=== PATIENT | female | born 1995 | race Two or more races ===

== ENCOUNTER 2016-09-09 17:03 | Inpatient (IN) | payer BC ==
[2016-09-09] MEDS ORDERED: NS 1,000 ML IV ONE (17:18)
[2016-09-09 17:29] LABS: % IMMATURE GRANULYOCYTES 0.3 % (0.0-1.1); ABSOLUTE IMMATURE GRANULOCYTES 0.07 10^3/uL (0.00-0.10); ADD DIFF? NO; ADD MORPH? NO; ADD SCAN? NO; ATYPICAL LYMPHOCYTE FLAG 0 (0-99); FRAGMENT RBC FLAG 0 (0-99); HEMATOCRIT 43.6 % (38.0-47.0); HEMOGLOBIN 15.5 g/dL (12.6-16.3); LEFT SHIFT FLG 0 (0-99); LIPEMIA HEMOLYSIS FLAG 90 (0-99); MEAN CELL HEMOGLOBIN 30.9 pg (27.9-34.1); MEAN CELL HEMOGLOBIN CONCENTR. 35.6 g/dL (32.4-36.7); MEAN CELL VOLUME 86.9 fL (81.5-99.8); MEAN PLATELET VOLUME 9.4 fL (8.7-11.7); PLATELET CLUMPS FLAG 0 (0-99); PLATELET COUNT 361 10^3/uL (150-400); RED BLOOD CELL COUNT 5.02 10^6/uL (4.18-5.33); RED CELL DISTRIBUTION WIDTH 13.6 % (11.5-15.2)
--- NOTE | 2016-09-09 17:36 | EDPHY ---
H & P Stated Complaint: mid abd pain, n/v x30 min - Personal History LMP (Females 10-55): 8-14 Days Ago Current Tetanus/Diphtheria Vaccine: Yes Current Tetanus Diphtheria and Acellular Pertussis (TDAP): Yes - Medical/Surgical History Hx Asthma: No Hx Chronic Respiratory Disease: No Hx Diabetes: No Hx Cardiac Disease: No Hx Renal Disease: No Hx Cirrhosis: No Hx Alcoholism: No Hx HIV/AIDS: No Hx Splenectomy or Spleen Trauma: No Other PMH: ANXIETY/DEPRESSION/LYME DISEASE. PSHx: lymph node removal L chest wall, chronic fatigue, epistein allred, chronic infection, marijuana. - Social History Smoking Status: Never smoked HPI/ROS: Chief complaint: Abdominal pain History of present illness: This is a 21-year-old female who presents to the emergency department for evaluation of abdominal pain. Patient reports onset of symptoms approximately 30 minutes ago. She describes diffuse pain, worse in the right lower abdomen. She has had associated nausea and vomiting x3 and one episode of diarrhea. No report of blood in either at the vomit or diarrhea. No reported fevers or urinary symptoms. Review of systems: A 10 point review of systems was obtained and other than described above was negative (Joni Pitts) - Physical Exam Exam: General Appearance: Alert, uncomfortable appearing. Eyes: Pupils equal and round no pallor or injection. ENT, Mouth: Mucous membranes moist. Respiratory: There are no retractions, lungs are clear to auscultation. Cardiovascular: Regular rate and rhythm. Gastrointestinal: Bowel sounds normal. Abdomen is soft. She is diffusely tender to palpation with point of maximal intensity in the right lower quadrant including over McBurney's. Neurological: Alert and oriented. Strength and sensation intact and symmetrical. Skin: Warm and dry, no rashes. Musculoskeletal: Neck is supple nontender. Extremities are symmetrical, full range of motion. Psychiatric: Patient is oriented X 3, there is no agitation. (Joni Pitts) Constitutional: Initial Vital Signs Temperature (C) 37 C 09/09/16 17:05 Heart Rate 100 09/09/16 17:05 Respiratory Rate 20 09/09/16 17:05 Blood Pressure 126/90 H 09/09/16 17:05 O2 Sat (%) 100 09/09/16 17:05 O2 Delivery Mode Room Air Allergies/Adverse Reactions: azithromycin [From Zithromax] Allergy (Severe, Verified 10/22/16 13:46) Hives Home Medications: Medication Instructions Recorded ALPRAZolam [Xanax 0.5 MG (*)] 0.5 mg PO DAILY PRN 09/09/16 Albuterol [Proventil Inhaler HFA 1 - 2 puffs IH Q4H PRN 09/09/16 (*)] Beclomethasone Qvar 80 [Qvar 80 2 puffs IH DAILY PRN 09/09/16 (*)] Budesonide [Rhinocort Allergy] 2 spray EACHNARE DAILY 09/09/16 Cholecalciferol Vit D3 [Vitamin D3 4,000 units PO DAILY 09/09/16 2000 units tab (OTC)] Citalopram [CeleXA] 40 mg PO HS 09/09/16 Cyanocobalamin [Vitamin B12 (*)] 2,000 mcg PO DAILY 09/09/16 Herbals/Supplements -Info Only 1 ea PO DAILY 09/09/16 Lisdexamfetamine Dimesylate 40 mg PO DAILY PRN 09/09/16 [Vyvanse] Montelukast Sodium [Singulair 10 10 mg PO HS 09/09/16 mg (*)] Nortriptyline HCl 40 mg PO HS 09/09/16 traZODone [traZODONE 50MG (*)] 50 mg PO HS 09/09/16 valACYclovir [Valtrex (*)] 500 mg PO BID PRN 09/09/16 Medical Decision Making - Diagnostics Imaging: Pelvic ultrasound unremarkable Right lower quadrant ultrasound nondiagnostic for appendicitis CT scan of the abdomen pelvis with IV contrast most consistent with a gastroenteritis, nondiagnostic for appendicitis (Joni Pitts) ED Course/Re-evaluation: The patient was evaluated and managed by the physician's assistant customer service manager. My cosignature indicates that I reviewed the chart and I agree with the findings and plan of care as documented. I am the secondary supervising physician. ( Vonda Manning) Patient is discussed with my secondary supervising physician Dr. Vonda Manning. Patient presents to the emergency department with abdominal pain with vomiting and diarrhea. She does have abdominal tenderness including at McBurney 's point. She has a significant leukocytosis of 20,000. Her ultrasound and CT scan of the abdomen and pelvis are nondiagnostic for appendicitis. Given McBurney point tenderness surgery is consulted. They believe unlikely appendicitis but do recommend observing her overnight. She is admitted to the medicine team. The plan has been discussed with the patient who voiced understanding and agreement with it. (Joni Pitts) Differential Diagnosis: Included but not limited to gastritis, gastroenteritis, biliary tract disease, pancreatitis, colitis, appendicitis, urinary tract disease, and associated complications (Joni Pitts) - Data Points Laboratory Results: Laboratory Results 09/09/16 17:20 09/09/16 17:20 09/09/16 09/09/16 09/09/16 20:43 17:20 17:20 WBC RBC Hgb Hct MCV MCH MCHC RDW Plt Count MPV Neut % (Auto) Lymph % (Auto) Rogers % (Auto) Eos % (Auto) Baso % (Auto) Nucleat RBC Rel Count Absolute Neuts (auto) Absolute Lymphs (auto) Absolute Monos (auto) Absolute Eos (auto) Absolute Basos (auto) Absolute Nucleated RBC Immature Gran % Immature Gran # Sodium 137 mEq/L mEq/L (134-144) Potassium 3.8 mEq/L mEq/L (3.5-5.2) Chloride 104 mEq/L mEq/L (97-110) Carbon Dioxide 19 mEq/l L mEq/l (22-31) Anion Gap 14 mEq/L mEq/L (8-16) BUN 8 mg/dL mg/dL (7-23) Creatinine 0.7 mg/dL mg/dL (0.6-1.0) Estimated GFR > 60 Glucose 84 mg/dL mg/dL (70-100) Calcium 10.2 mg/dL mg/dL (8.5-10.4) Total Bilirubin 0.8 mg/dL mg/dL (0.1-1.4) Conjugated Bilirubin 0.6 mg/dL H mg/dL (0.0-0.5) Unconjugated Bilirubin 0.2 mg/dL mg/dL (0.0-1.1) AST 40 IU/L IU/L (14-46) ALT 45 IU/L IU/L (9-52) Alkaline Phosphatase 87 IU/L IU/L (38-126) Total Protein 8.6 g/dL H g/dL (6.3-8.2) Albumin 5.0 g/dL g/dL (3.5-5.0) Lipase 153.0 IU/L IU/L (23-300) Beta HCG, Qual NEGATIVE Urine Color PALE YELLOW Urine Appearance CLEAR Urine pH 6.0 (5.0-7.5) Ur Specific [place] > 1.035 H (1.002-1.030) Urine Protein NEGATIVE (NEGATIVE) Urine Ketones 1+ H (NEGATIVE) Urine Blood NEGATIVE (NEGATIVE) Urine Nitrate NEGATIVE (NEGATIVE) Urine Bilirubin NEGATIVE (NEGATIVE) Urine Urobilinogen NEGATIVE EU EU (0.2-1.0) Ur Leukocyte Esterase NEGATIVE (NEGATIVE) Ur Culture Indicated? NOT INDICATED (NI) Urine Glucose NEGATIVE (NEGATIVE) 09/09/16 17:20 WBC 20.17 10^3/uL H 10^3/uL (3.80-9.50) RBC 5.02 10^6/uL 10^6/uL (4.18-5.33) Hgb 15.5 g/dL g/dL (12.6-16.3) Hct 43.6 % % (38.0-47.0) MCV 86.9 fL fL (81.5-99.8) MCH 30.9 pg pg (27.9-34.1) MCHC 35.6 g/dL g/dL (32.4-36.7) RDW 13.6 % % (11.5-15.2) Plt Count 361 10^3/uL 10^3/uL (150-400) MPV 9.4 fL fL (8.7-11.7) Neut % (Auto) 78.0 % H % (39.3-74.2) Lymph % (Auto) 15.6 % % (15.0-45.0) Rogers % (Auto) 4.8 % % (4.5-13.0) Eos % (Auto) 1.0 % % (0.6-7.6) Baso % (Auto) 0.3 % % (0.3-1.7) Nucleat RBC Rel Count 0.0 % % (0.0-0.2) Absolute Neuts (auto) 15.72 10^3/uL H 10^3/uL (1.70-6.50) Absolute Lymphs (auto) 3.14 10^3/uL H 10^3/uL (1.00-3.00) Absolute Monos (auto) 0.97 10^3/uL H 10^3/uL (0.30-0.80) Absolute Eos (auto) 0.21 10^3/uL 10^3/uL (0.03-0.40) Absolute Basos (auto) 0.06 10^3/uL 10^3/uL (0.02-0.10) Absolute Nucleated RBC 0.00 10^3/uL 10^3/uL (0-0.01) Immature Gran % 0.3 % % (0.0-1.1) Immature Gran # 0.07 10^3/uL 10^3/uL (0.00-0.10) Sodium Potassium Chloride Carbon Dioxide Anion Gap BUN Creatinine Estimated GFR Glucose Calcium Total Bilirubin Conjugated Bilirubin Unconjugated Bilirubin AST ALT Alkaline Phosphatase Total Protein Albumin Lipase Beta HCG, Qual Urine Color Urine Appearance Urine pH Ur Specific [place] Urine Protein Urine Ketones Urine Blood Urine Nitrate Urine Bilirubin Urine Urobilinogen Ur Leukocyte Esterase Ur Culture Indicated? Urine Glucose Medications Given: Discontinued Medications Hydromorphone HCl (Dilaudid) 0.5 mg IVP EDNOW ONE Stop: 09/09/16 18:18 Last Admin: 09/09/16 18:32 Dose: 0.5 mg Hydromorphone HCl (Dilaudid) 0.5 mg IVP EDNOW ONE Stop: 09/09/16 19:40 Last Admin: 09/09/16 19:52 Dose: 0.5 mg Sodium Chloride (Ns) 1,000 mls @ 0 mls/hr IV ONCE ONE PRN Reason: Wide Open Stop: 09/09/16 17:19 Last Admin: 09/09/16 17:32 Dose: 1,000 mls Ondansetron HCl (Zofran) 4 mg IVP EDNOW ONE Stop: 09/09/16 18:18 Last Admin: 09/09/16 18:32 Dose: 4 mg Departure - Departure Disposition: [facility] Acute Clinical Impression: Abdominal pain Qualifiers: Abdominal location: generalized Qualified Code(s): R10.84 - Generalized abdominal pain Condition: Good
[2016-09-09 17:48] LABS: ALANINE AMINOTRANSFERASE 45 IU/L (9-52); ALKALINE PHOSPHATASE 87 IU/L (38-126); ANION GAP 14 mEq/L (8-16); ASPARTATE AMINOTRANSFERASE 40 IU/L (14-46); BILIRUBIN,TOTAL 0.8 mg/dL (0.1-1.4); BILIRUBIN-CONJUGATED 0.6 mg/dL (0.0-0.5); BILIRUBIN-UNCONJUGATED 0.2 mg/dL (0.0-1.1); CALCIUM 10.2 mg/dL (8.5-10.4); CARBON DIOXIDE 19 mEq/l (22-31); CHLORIDE 104 mEq/L (97-110); CREATININE 0.7 mg/dL (0.6-1.0); GLOMERULAR FILTRATION RATE > 60; GLUCOSE 84 mg/dL (70-100); POTASSIUM 3.8 mEq/L (3.5-5.2); SODIUM 137 mEq/L (134-144); TOTAL PROTEIN 8.6 g/dL (6.3-8.2)
[2016-09-09] MEDS ORDERED: ONDANSETRON 4 MG/2 ML VIAL IVP ONE (18:17)
[2016-09-09] MEDS ORDERED: HYDROmorphONE/DILAUDID 1 MG/ML SYR IVP ONE ×2 (18:17→19:39)
[2016-09-09] MEDS ORDERED: IOPAMIDOL (ISOVUE-300) 100 ML BTL IV ONE (19:04)
[2016-09-09 19:59] VITALS: RESP 16
[2016-09-09 21:12] LABS: COLOR PALE YELLOW; LEUKOCYTE ESTERASE,URINE NEGATIVE (NEGATIVE); NITRITE,URINE NEGATIVE (NEGATIVE)
--- NOTE | 2016-09-09 21:20 | GCON ---
[f rep st] CONSULTATION GENERAL SURGERY CONSULTATION DATE OF CONSULTATION: 09/09/2016 REFERRING PHYSICIAN: SKYLAR Smith CHIEF COMPLAINT: Abdominal pain. HISTORY OF PRESENT ILLNESS: The patient is a 21-year-old woman who developed severe nausea and vomi ting. She was diaphoretic during her episodes. She developed the onset of abdominal pain, acute on set, that is worse in her low pelvis on the right side. She had this feeling before when she had a ruptured cyst. She presented to the ER. Her pelvic ultrasound was obtained that did not show any a bnormality. She had an ultrasound of her abdomen which did not visualize the appendix. She then chadwick d a CT of her abdomen which did not show the appendix, but there was also no evidence of secondary s igns of appendicitis. She did have fluid-filled loops of distal small bowel and constipation at the level of the cecum. Her white count is 20,000. PAST MEDICAL HISTORY: Anxiety, depression, Lyme disease. PAST SURGICAL HISTORY: Lymph node removal. SOCIAL HISTORY: She does not use tobacco. 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 ALLERGIES: Azithromycin. MEDICATIONS: Celexa, control, trazodone, budesonide, Cipro, Singulair. FAMILY HISTORY: No family history of bowel disease. PHYSICAL EXAMINATION: VITAL SIGNS: 37, 100, 126/90, 20, 100%. GENERAL: A pleasant, well-nourishe d, well-groomed woman in mild distress on [facility]. HEENT: Normocephalic. No gross hearing deficits . Mucous membranes moist. Pupils equal and round. No scleral icterus. LUNGS: Clear to auscultat ion bilaterally. No increased work of breathing. CARDIAC: Regular rate. ABDOMEN: Bowel sounds p resent. She is tender above the suprapubic area on the right side and in the right lower quadrant. SKIN: Warm and dry. MUSCULOSKELETAL: Normal nails. IMAGING: Results reviewed per HPI. IMPRESSION AND PLAN: The patient is a 21-year-old with the acute onset abdominal pain. Her CT scan does not show appendicitis. However, due to her tachycardia and her elevated white count requiring narcotic pain medication, I do recommend that she be hydrated and admitted overnight with labs rech ecked in the morning. I am hopeful she will not need surgery. /[id number]/MODL
[2016-09-09] MEDS ORDERED: ACETAMINOPHEN 325 MG TAB PO PRN (21:33)
[2016-09-09] MEDS ORDERED: ALBUTEROL 60 PUFFS/8 GM MDI IH PRN (21:34)
[2016-09-09] MEDS ORDERED: BECLOMETHASONE QVAR 80 MDI IH PRN (21:34)
[2016-09-09] MEDS ORDERED: NON-FORMULARY NEW DRUG (Lisdexamfetamine Dimesylate [Vyvanse] 40 MG) PO PRN (21:34)
[2016-09-09] MEDS ORDERED: ALPRAZolam 0.5 MG TAB PO PRN (21:34)
--- NOTE | 2016-09-09 21:55 | GHP ---
[f rep st] HISTORY AND PHYSICAL DATE OF ADMISSION: 09/09/2016 CHIEF COMPLAINT: Abdominal pain. HISTORY OF PRESENT ILLNESS: This is a 21-year-old female who presents with acute onset of abdominal pain. It began in her epigastrium, migrated down to her right lower quadrant. It was associated w ith nonbloody, nonbilious emesis x3 and a small episode of diarrhea. She had an ovarian cyst ruptur e but has had no other events of abdominal pain. She has never had any abdominal surgeries. Dilaud id she received in the emergency department has partially relieved her pain. PAST MEDICAL/PAST SURGICAL HISTORY: 1. Lyme disease. 2. Chronic mono. 3. Chronic fatigue syndrome. 4. B12 deficiency. MEDICATIONS: Please see medication reconciliation. ALLERGIES: Azithromycin. FAMILY HISTORY: Her grandmother had diabetes. SOCIAL HISTORY: She is a [employer] student. She occasionally drinks alcohol. She does not smoke. REVIEW OF SYSTEMS: Negative for fevers; however, otherwise a 10-point review of systems is negative except per HPI. PHYSICAL EXAMINATION: VITAL SIGNS: Blood pressure 121/80, heart rate 96, respiration rate 16, satu rating 95% on room air. Temperature is 37. GENERAL: The patient is a pleasant female who appears mildly uncomfortable, lying in bed in no acute distress. HEENT: Normocephalic, atraumatic. CARDIO VASCULAR: Regular rate and rhythm. No murmurs, rubs, or gallops. PULMONARY: Lungs clear to auscu ltation bilaterally. ABDOMEN: Normal bowel sounds. ABDOMEN: Soft. She is tender to palpation in the right lower quadrant. There are no rebound or guarding signs. This is not peritoneal. SKIN: No rash. : No Ruiz. NEUROLOGIC: Alert and oriented x3. She is moving all extremities. PSYC HIATRIC: Normal mood and affect. LABS: CBC shows a white count of 20,000. Basic metabolic panel shows a bicarb of 19 otherwise her conjugated bilirubin is mildly elevated at 0.6. Urinalysis shows ketones concentrated. There is no blood. DATA: 1. I discussed this with Joni Pitts. Will admit to [facility] for observation. 2. CT scan shows is nondiagnostic for appendicitis but it looks most likely like gastroenteritis. 3. Pelvic renal ultrasound is normal. 4. Abdominal ultrasound is nondiagnostic for appendicitis. IMPRESSION AND PLAN: A 21-year-old female presents with abdominal pain. 1. Abdominal pain: Most likely due to gastroenteritis. Her imaging was nondiagnostic to rule out appendicitis. She was seen by Dr. Magaña in the emergency department who feels that it is unlikely a ppendicitis. Given her white count of 20,000, will monitor her overnight. I provided her with Dila udid for pain relief, Zofran. Will recheck her labs in the morning. 2. Mild acidosis: I will hydrate her and recheck in the morning. 3. Will continue her outpatient medications for attention deficit hyperactivity disorder, anxiety, and allergies. DISPOSITION: If her abdominal pain is improved and her white count has dropped, she will be able to be discharged tomorrow. If she worsens, would alert General Surgery. /[id number]/MODL
[2016-09-09] MEDS ORDERED: (Lisdexamfetamine Dimesylate [Vyvanse] 40 MG) PO PRN (21:56)
[2016-09-09] MEDS: NS 1,000 ML IV SCH (22:02)
[2016-09-09] MEDS: HYDROmorphONE/DILAUDID 1 MG/ML SYR IVP PRN (22:15)
[2016-09-09] MEDS: ONDANSETRON DISINTEGRATING 4 MG TAB PO PRN (22:28)
[2016-09-09] MEDS: valACYclovir 500 MG TAB PO PRN (22:29)
[2016-09-09] MEDS: traZODone 50 MG TAB PO SCH (22:29)
[2016-09-09] MEDS: NORTRIPTYLINE HCL 10 MG CAP PO SCH (22:30)
[2016-09-09] MEDS: ALPRAZolam 0.25 MG TAB PO PRN ×2 (22:33→22:34)
[2016-09-09] MEDS: MONTELUKAST SODIUM 10 MG TAB PO SCH (22:33)
[2016-09-09] MEDS: CITALOPRAM 20 MG TAB PO SCH (22:34)
[2016-09-10] MEDS: HYDROmorphONE/DILAUDID 1 MG/ML SYR IVP PRN ×5 (02:11→19:02)
[2016-09-10 05:41] LABS: % IMMATURE GRANULYOCYTES 0.5 % (0.0-1.1); ABSOLUTE IMMATURE GRANULOCYTES 0.06 10^3/uL (0.00-0.10); ADD DIFF? NO; ADD MORPH? NO; ADD SCAN? NO; ATYPICAL LYMPHOCYTE FLAG 10 (0-99); FRAGMENT RBC FLAG 0 (0-99); HEMATOCRIT 37.8 % (38.0-47.0); HEMOGLOBIN 12.8 g/dL (12.6-16.3); LEFT SHIFT FLG 0 (0-99); LIPEMIA HEMOLYSIS FLAG 90 (0-99); MEAN CELL HEMOGLOBIN 30.5 pg (27.9-34.1); MEAN CELL HEMOGLOBIN CONCENTR. 33.9 g/dL (32.4-36.7); MEAN PLATELET VOLUME 9.7 fL (8.7-11.7); PLATELET CLUMPS FLAG 30 (0-99); PLATELET COUNT 276 10^3/uL (150-400); RED CELL DISTRIBUTION WIDTH 13.8 % (11.5-15.2)
[2016-09-10 05:54] LABS: CARBON DIOXIDE 21 mEq/l (22-31); CHLORIDE 109 mEq/L (97-110); POTASSIUM 4.2 mEq/L (3.5-5.2); SODIUM 136 mEq/L (134-144)
[2016-09-10 05:55] LABS: ANION GAP 6 mEq/L (8-16); CALCIUM 8.6 mg/dL (8.5-10.4); CREATININE 0.7 mg/dL (0.6-1.0); GLOMERULAR FILTRATION RATE > 60; GLUCOSE 76 mg/dL (70-100)
[2016-09-10] MEDS: valACYclovir 500 MG TAB PO PRN (07:23)
[2016-09-10] MEDS: ALPRAZolam 0.25 MG TAB PO PRN (07:24)
--- NOTE | 2016-09-10 08:23 | SOAPPROG ---
SOAP Progress Note Assessment/Plan: Assessment: HD # 2 for rlq abdominal pain CT did not show appendicitis. Picture more consistent with gastroenteritis and stool at cecum Remains tender RLQ but less so than last night in ER Pain meds X 1 WBC better Will advance diet and see. Can consider CT with po contrast if picture remains unclear S: Vivid dreams. Pain with moving. No diarrhea. No emesis Plan: 09/10/16 08:20 Objective: Vital Signs Temp Pulse Resp BP Pulse Ox 36.7 C 85 16 85/56 L 96 09/10/16 07:16 09/10/16 07:16 09/10/16 07:16 09/10/16 07:16 09/10/16 07:16 Laboratory Results 09/10/16 05:07 09/10/16 05:07 09/09/16 09/10/16 09/11/16 05:59 05:59 05:59 Intake Total 1700 Output Total 600 Balance 1100 Physical Exam - Physical Exam General Appearance: WD/WN, alert, no apparent distress EENT: PERRL/EOMI, normal ENT inspection Respiratory: lungs clear, normal breath sounds Cardiac/Chest: regular rate, rhythm Abdomen: normal bowel sounds, soft, other (tender one spot RLQ) Skin: normal color, warm/dry Extremities: normal range of motion ICD10 Worksheet Patient Problems: Problems Problem Status Onset Abdominal pain Acute
[2016-09-10] MEDS: CYANO/VITAMIN B12 1000 MCG TAB PO SCH (08:30)
[2016-09-10] MEDS ORDERED: [UNRECOGNIZED DRUG - REMARK] EACHNARE SCH (09:00)
[2016-09-10] MEDS: ONDANSETRON DISINTEGRATING 4 MG TAB PO PRN (09:21)
[2016-09-10] MEDS: FLUTICASONE NASAL 120 SPRAYS/16 GM MDI EACHNARE SCH (11:02)
[2016-09-10] MEDS ORDERED: ONDANSETRON 4 MG/2 ML VIAL IVP PRN (11:34)
[2016-09-10] MEDS ORDERED: BISACODYL 10 MG SUPP PR PRN (11:35)
[2016-09-10] MEDS ORDERED: BISACODYL 10 MG SUPP PR ONE (11:35)
[2016-09-10] MEDS ORDERED: METOCLOPRAMIDE 10 MG/2 ML VIAL IVP PRN (15:39)
[2016-09-10] MEDS ORDERED: METOCLOPRAMIDE 5 MG TAB PO PRN (15:40)
[2016-09-10] MEDS: oxyCODONE IR 5 MG TAB PO PRN ×2 (20:13→23:23)
--- NOTE | 2016-09-10 20:32 | HOSPPROG ---
Hospitalist Progress Note Assessment/Plan: Assessment: 21 yo F p/w acute gastroenteritis c/b SIRS, hypotension Plan: # Gastroenteritis. Acute, visualized on abd CT w/ concomitant cecal constipation - unresolved, pain, nausea, dietary intolerance continue - unable to tolerate light diet, reduce to clears - cont PRN dilaudid, zofran for nausea, reglan 2nd line # SIRS. Acute, tachycardia + leukocytosis, suspect 2/2 above, although appreciate Dr. Magaña's consultation for possible appendicitis - appendix insufficiently visualized on CT/US, cont to monitor pain and clinical course, as this would be a catastrophic complication if it evolved while obscured on imaging - cont IVF at 150cc/hr given that she has no PO tolerance at this time - hold on abx - monitor CBC # Hypotension. Acute, 2/2 poor PO evelin and hypovolemia, cont IVF # Metabolic Acidosis. Acute, 2/2 vomiting/hypovolemia, cont IVF and monitor BMP # Constipation. Counseled patient on use of suppository and enema, as this could improve symptoms Diet. Red to clears Ppx. Mod risk, SCDs Code. Full Dispo. ADD uncertain, upgrade to inpatient admission status now given oral intolerance and hypotension today, unsafe to medically discharge, requiring ongoing IVF/IV pain/nausea Rx Subjective: patient requiring counseling about her dx, coordinating w/ RN to tx nausea Objective: Vital Signs Temp Pulse Resp BP Pulse Ox 36.7 C 90 16 120/81 H 97 09/10/16 07:16 09/10/16 14:13 09/10/16 14:13 09/10/16 14:13 09/10/16 14:13 Laboratory Results 09/10/16 05:07 09/10/16 05:07 09/09/16 09/10/16 09/11/16 05:59 05:59 05:59 Intake Total 1700 1047 Output Total 600 110 Balance 1100 937 - Time Spent With Patient Time Spent with Patient: greater than 35 minutes Time Spent with Patient: Greater than 35 minutes spent on this patients care, greater than 50% of time spent counseling, educating, and coordinating care regarding the above mentioned plan. - Physical Exam Constitutional: uncomfortable, No no apparent distress (mild), No not in pain Ears, Nose, Mouth, Throat: moist mucous membranes, hearing normal, ears appear normal, no oral mucosal ulcers Cardiovascular: tachycardia, No systolic murmur, No irregularly irregular, No edema Respiratory: no respiratory distress, no rales or rhonchi, clear to auscultation Gastrointestinal: normoactive bowel sounds, tenderness (RLQ and R mid abd), guarding (voluntary), No distension Genitourinary: no bladder fullness, no bladder tenderness, No huang in urethra Neurologic: AAOx3 Psychiatric: interacting appropriately, not encephalopathic ICD10 Worksheet Patient Problems: Problems Problem Status Onset Abdominal pain Acute
[2016-09-10] MEDS ORDERED: LACTULOSE 20 GM/30 ML UDCUP PO PRN (20:34)
[2016-09-10] MEDS ORDERED: MAGNESIUM HYDROXIDE 30 ML UDCUP PO PRN (20:34)
[2016-09-10] MEDS ORDERED: POLYETHYLENE GLYCOL 3350 17 GM PKT PO PRN (20:34)
[2016-09-10] MEDS: MONTELUKAST SODIUM 10 MG TAB PO SCH (23:23)
[2016-09-10] MEDS: CITALOPRAM 20 MG TAB PO SCH (23:23)
[2016-09-10] MEDS: NORTRIPTYLINE HCL 10 MG CAP PO SCH (23:24)
[2016-09-10] MEDS: traZODone 50 MG TAB PO SCH (23:24)
[2016-09-10] MEDS: SENNOSIDES/DOCUSATE SODIUM TAB PO SCH (23:24)
[2016-09-10] MEDS: NS 1,000 ML IV SCH (23:25)
[2016-09-11] MEDS: oxyCODONE IR 5 MG TAB PO PRN ×2 (05:45→12:54)
[2016-09-11] MEDS: ONDANSETRON DISINTEGRATING 4 MG TAB PO PRN ×2 (05:46→12:54)
[2016-09-11 06:14] LABS: % IMMATURE GRANULYOCYTES 0.3 % (0.0-1.1); ABSOLUTE IMMATURE GRANULOCYTES 0.02 10^3/uL (0.00-0.10); ADD DIFF? NO; ADD MORPH? NO; ADD SCAN? NO; ATYPICAL LYMPHOCYTE FLAG 10 (0-99); FRAGMENT RBC FLAG 0 (0-99); HEMATOCRIT 34.1 % (38.0-47.0); HEMOGLOBIN 11.5 g/dL (12.6-16.3); LEFT SHIFT FLG 0 (0-99); LIPEMIA HEMOLYSIS FLAG 80 (0-99); MEAN CELL HEMOGLOBIN 30.8 pg (27.9-34.1); MEAN CELL HEMOGLOBIN CONCENTR. 33.7 g/dL (32.4-36.7); MEAN CELL VOLUME 91.4 fL (81.5-99.8); MEAN PLATELET VOLUME 9.7 fL (8.7-11.7); PLATELET CLUMPS FLAG 0 (0-99); PLATELET COUNT 248 10^3/uL (150-400); RED BLOOD CELL COUNT 3.73 10^6/uL (4.18-5.33); RED CELL DISTRIBUTION WIDTH 13.6 % (11.5-15.2)
[2016-09-11 06:21] LABS: ANION GAP 6 mEq/L (8-16); CALCIUM 7.9 mg/dL (8.5-10.4); CARBON DIOXIDE 20 mEq/l (22-31); CHLORIDE 113 mEq/L (97-110); CREATININE 0.6 mg/dL (0.6-1.0); GLOMERULAR FILTRATION RATE > 60; GLUCOSE 76 mg/dL (70-100); SODIUM 139 mEq/L (134-144)
--- NOTE | 2016-09-11 11:04 | SOAPPROG ---
SOAP Progress Note Assessment/Plan: Assessment: HD #3 for rlq abdominal pain Complains of persistent pain overnight, no improvement, tender on exam Repeat CT with PO contrast ? viral gastroenteritis Labs WNL If CT negative, can advance diet and d/c home later today appreciate hospitalist comanagement S: Vomiting yesterday. complains of persistent pain without improvement. minimal flatus and no BM O: laying in bed, comfortable, NAD No increased WOB Hypoactive BS, soft, tender RLQ, nondistended. Piercings in RLQ and LLQ 09/11/16 13:41 09/11/16 13:41 Objective: Vital Signs Temp Pulse Resp BP Pulse Ox 36.8 C 82 16 97/68 L 95 09/11/16 07:25 09/11/16 07:25 09/11/16 07:25 09/11/16 07:25 09/11/16 07:25 Laboratory Results 09/11/16 05:50 09/11/16 05:50 09/10/16 09/11/16 09/12/16 05:59 05:59 05:59 Intake Total 1999 Balance 1999 ICD10 Worksheet Patient Problems: Problems Problem Status Onset Abdominal pain Acute
[2016-09-11] MEDS ORDERED: IOPAMIDOL (ISOVUE-300) 100 ML BTL IV ONE (11:19)
[2016-09-11] MEDS: CYANO/VITAMIN B12 1000 MCG TAB PO SCH (12:54)
[2016-09-11] MEDS: ALPRAZolam 0.25 MG TAB PO PRN (12:54)
[2016-09-11] MEDS: SENNOSIDES/DOCUSATE SODIUM TAB PO SCH (12:54)
[2016-09-11] MEDS: FLUTICASONE NASAL 120 SPRAYS/16 GM MDI EACHNARE SCH (12:55)
--- NOTE | 2016-09-11 14:19 | PDDCSUM ---
Discharge Summary Discharge Summary: DISCHARGE SUMMARY FOLLOW-UP ITEMS: None DATE OF ADMISSION: 09/09/16 DATE OF DISCHARGE: 09/11/2016 DISCHARGE DIAGNOSES: 1. Acute gastroenteritis 2. Systemic inflammatory response syndrome 3. Acute hypotension 4. Acute metabolic acidosis 5. Constipation CONSULTATIONS: General surgery by Dr. Magaña PROCEDURES / IMAGING: CT of the abdomen initially demonstrating cecal constipation and fluid-filled loops of small bowel, transvaginal ultrasound demonstrating no abnormalities, repeat CT of the abdomen demonstrates complete resolution of cecal constipation and resolution of gastroenteritis CHIEF COMPLAINT: Acute abdominal pain SUBJECTIVE: Patient is feeling well at time of discharge, she has been able to tolerate oral solids and liquids PHYSICAL EXAM ON DISCHARGE: Systolic blood pressure is 100, heart rate 80, afebrile overnight, satting well on room air, abdomen is soft nontender with the exception of mild tenderness to moderate palpation in the right lower quadrant with normal bowel sounds, no guarding LABS ON DISCHARGE: Creatinine 0.6, white blood cell count 7400, hemoglobin 11.5 HOSPITAL COURSE BY PROBLEM: 1. Acute gastroenteritis. Abdominal CT demonstrating fluid-filled loops of bowel consistent with this diagnosis well as a systemic inflammatory response. Patient's acute process resulted in constipation the cecum. Initially, the patient's appendix was unable to be visualized secondary to the above, and General surgery decided to pursue conservative management and continue to monitor. After patient's symptoms began improving, the patient did continue to have tenderness to palpation in the right lower quadrant so a repeat abdominal CT was performed. Repeat CT demonstrates complete resolution of the aforementioned abnormalities and her appendix was well visualized, not inflamed. General surgery determined that no surgical intervention was indicated. The patient responded well to conservative treatment with IV fluids , antiemetics, pain medications, and she will receive some as needed medications at time of discharge in case she has any ongoing symptoms. At the present time, she does not require gastrointestinal consultation and she does not have any evidence of inflammatory bowel disease on her repeat CT. 2. Systemic inflammatory response syndrome. Tachycardia and leukocytosis, most likely secondary to above, patient did not have any evidence of appendicitis. She responded to IV fluids and symptom control. She did not require any antibiotics. White blood cell count was normal at time of discharge and her tachycardia had resolved. 3. Acute hypotension. This was most likely secondary to poor oral tolerance and resultant hypovolemia. She responded well to IV fluids. In addition to the above, this necessitated her inpatient admission status. 4. Acute metabolic acidosis. Secondary to vomiting in hypovolemia, resolved with IV fluids. 5. Constipation. This is most likely secondary to inflammation and irritation in the bowel, and she responded to aggressive suppository and enema. She will continue on as needed Senokot S twice daily while she is taking oxycodone to prevent constipation. DISCHARGE MEDICATIONS: Please see official discharge medication reconciliation sheet in chart oxycodone 5-10 mg as needed, 20 tablets prescribed, Zofran 40 mg as needed, 40 tablets prescribed, Senokot S1 tab twice daily while taking oxycodone. DISCHARGE INSTRUCTIONS: Please follow up with primary care provider upon returning to [facility]. If further medical care while at [facility] is required, contact Mindi Hunt and requests sick appointment. TIME SPENT: Greater than 30 minutes were spent on direct patient care, as well as discharge planning and preparation.
[2016-09-11 14:34] VITALS: BP 101/64; PULSE 94; TEMP 98.1; O2SAT 94
== END 2016-09-11 15:02 | disposition home or self-care (01) | DRG 392 ==
LOC: F1N 21:28 → OBSVTOIN 09-10 20:27
PROVIDERS: ADMIT Student in an Organized Health Care Education/Training Program; ATTEND Student in an Organized Health Care Education/Training Program
DX: K52.9 Noninfective gastroenteritis and colitis, unspecified (principal); R65.10 Systemic inflammatory response syndrome (SIRS) of non-infectious origin without acute organ dysfunction; E87.2 Acidosis; K59.00 Constipation, unspecified; I95.89 Other hypotension
CPT/HCPCS: 96374; G0378; J1170; J2405; J2765; Q9967

== ENCOUNTER 2017-04-06 20:06 | Emergency (ER) | payer BC ==
[2017-04-06] MEDS ORDERED: LIDOCAINE 2% VISCOUS 15 ML UDCUP PO ONE (22:14)
[2017-04-06 22:40] VITALS: BP 129/81; PULSE 89; RESP 16; TEMP 98.2
[2017-04-06 23:31] VITALS: O2SAT 97
--- NOTE | 2017-04-21 23:26 | EDPHY ---
H & P Stated Complaint: sob throat tight x 1 hour, hyperventilation, carpal pedal spasms Time Seen by Provider: 04/06/17 22:03 HPI/ROS: ED Long Dictation (Adult) Patient Name: DOMINGUEZ QUINN Date of : 89 Patient Status: Emergency Emergency Provider: Jil Atkins Date: 04/06/17 22:15 Initialization Date: 04/06/17 22:15 Addendum entered and electronically signed by Jil Atkins MD 04/07/17 06 :09: Original Note: H & P Stated Complaint: sob throat tight x 1 hour, hyperventilation, carpal pedal spasms Time Seen by Provider: 04/06/17 22:03 HPI/ROS: HPI The patient presents with sore throat which began about 4 hours ago while eating a sushi dinner. She felt pain in her middle throat and chest that was achy in nature, worse with swallowing, this started slowly and got progressively worse. It then radiated to her chest. It has continued ever since. She does not have any neck pain, difficulty swallowing her secretions, difficulty ranging her neck. She does not have a fever, rash, vomiting, history of food allergy that she is aware of. When she developed a sore throat she began to feel anxious and was breathing quickly, she developed cramping in her arms and hands which is now resolved. REVIEW OF SYSTEMS Constitutional: No fever, no chills. Eyes: No discharge. ENT: Positive for sore throat. Cardiovascular: No chest pain, no palpitations. Respiratory: No cough, positive for shortness of breath. Gastrointestinal: No abdominal pain, no vomiting. Genitourinary: No hematuria. Musculoskeletal: No back pain. Skin: No rashes. Neurological: No headache. PMHx: Admission in August for gastroenteritis Soc Hx: Marijuana use PHYSICAL General Appearance: Alert, no distress Eyes: Pupils equal and round no pallor or injection ENT, Mouth: Mucous membranes moist, posterior pharynx is slightly erythematous with no edema Respiratory: There are no retractions, lungs are clear to auscultation Cardiovascular: Regular rate and rhythm Gastrointestinal: Abdomen is soft and non-tender, no masses, bowel sounds normal Neurological: A&O, moves all extremities Skin: Warm and dry, no rashes Musculoskeletal: Neck is supple non tender Extremities: symmetrical, full range of motion Psychiatric: Patient is oriented X 3, there is no agitation Source: Patient Exam Limitations: No limitations - Personal History LMP (Females 10-55): Unknown Current Tetanus/Diphtheria Vaccine: Unsure Current Tetanus Diphtheria and Acellular Pertussis (TDAP): Unsure - Medical/Surgical History Hx Asthma: No Hx Chronic Respiratory Disease: No Hx Diabetes: No Hx Cardiac Disease: No Hx Renal Disease: No Hx Cirrhosis: No Hx Alcoholism: No Hx HIV/AIDS: No Hx Splenectomy or Spleen Trauma: No Other PMH: ANXIETY/DEPRESSION/LYME DISEASE. PSHx: lymph node removal L chest wall, chronic fatigue, epistein allred, chronic infection, marijuana. - Social History Smoking Status: Never smoked Constitutional: Initial Vital Signs Temperature (C) 37.0 C 04/06/17 20:08 Heart Rate 105 H 04/06/17 20:08 Respiratory Rate 28 H 04/06/17 20:08 Blood Pressure 112/84 H 04/06/17 20:08 O2 Sat (%) 100 04/06/17 20:08 O2 Delivery Mode Room Air Allergies/Adverse Reactions: azithromycin [From Zithromax] Allergy (Severe, Verified 04/15/16 13:46) Hives Home Medications: Medication Instructions Recorded ALPRAZolam [Xanax 0.5 MG (*)] 0.5 mg PO DAILY PRN 09/09/16 Albuterol [Proventil Inhaler HFA 1 - 2 puffs IH Q4H PRN 09/09/16 (*)] Beclomethasone Qvar 80 [Qvar 80 2 puffs IH DAILY PRN 09/09/16 (*)] Budesonide [Rhinocort Allergy] 2 spray EACHNARE DAILY 09/09/16 Cholecalciferol Vit D3 [Vitamin D3 4,000 units PO DAILY 09/09/16 2000 units tab (OTC)] Citalopram [CeleXA 20 MG] 40 mg PO HS 09/09/16 Cyanocobalamin [Vitamin B12 (*)] 2,000 mcg PO DAILY 09/09/16 Herbals/Supplements -Info Only 1 ea PO DAILY 09/09/16 Lisdexamfetamine Dimesylate 40 mg PO DAILY PRN 09/09/16 [Vyvanse] Montelukast Sodium [Singulair 10 10 mg PO HS 09/09/16 mg (*)] Nortriptyline HCl 40 mg PO HS 09/09/16 traZODone [traZODONE 50MG (*)] 50 mg PO HS 09/09/16 valACYclovir [Valtrex (*)] 500 mg PO BID PRN 09/09/16 Acetaminophen [Tylenol 325mg (*)] 650 mg PO Q6HRS PRN #0 tab 09/11/16 Ondansetron Odt [Zofran Odt 4 mg 4 - 8 mg PO Q4HRS PRN #40 tab 09/11/16 (*)] Sennosides/Docusate Sodium 1 tab PO BID #20 tab 09/11/16 [Senokot-S] oxyCODONE IR [Oxycodone Ir (*)] 5 - 10 mg PO Q4 PRN #20 tab 09/11/16 Medical Decision Making - Diagnostics Imaging: Discussed imaging studies w/ assistant dean of students Radiologist, I viewed and interpreted images myself Differential Diagnosis: 22-year-old female who presents from home with sore throat, then symptoms of anxiety following this. On exam, her posterior pharynx is slightly erythematous but not edematous, uvula is midline, there are no exudates. Differential diagnosis includes viral pharyngitis, allergic reaction to food, less likely deep space neck infection. In the emergency department, the patient received viscous lidocaine with improvement in her symptoms. We discussed risks and benefits of neck x-ray and she would like to proceed. However, she did not want to wait for the results before going home. X-ray was performed and did demonstrate a focal lucency in the prevertebral soft tissues in the upper cervical region of uncertain significance. I doubt that she has retropharyngeal abscess or any deep space neck infection based on her presentation. I called her at home to discussed the findings of her x-ray and I have advised her to return if her symptoms continue or get worse, if he develops any neck pain or stiffness or she develops a fever. She is in agreement with this plan and can do this. If she does return to the emergency department I would recommend that she has a CT scan of her neck with IV contrast. - Data Points Medications Given: Discontinued Medications Lidocaine (Lidocaine 2% Viscous) 5 ml PO EDNOW ONE Stop: 04/06/17 22:15 Last Admin: 04/06/17 22:23 Dose: 5 ml Departure - Departure Disposition: Home, Routine, Self-Care Clinical Impression: Sore throat Condition: Good Instructions: Pharyngitis (ED) Additional Instructions: Please return to the emergency department if your worse in any way. Referrals: NONE *PRIMARY CARE P,. [Primary Care Provider] - As per Instructions - Personal History LMP (Females 10-55): Unknown Current Tetanus/Diphtheria Vaccine: Unsure Current Tetanus Diphtheria and Acellular Pertussis (TDAP): Unsure - Medical/Surgical History Hx Asthma: No Hx Chronic Respiratory Disease: No Hx Diabetes: No Hx Cardiac Disease: No Hx Renal Disease: No Hx Cirrhosis: No Hx Alcoholism: No Hx HIV/AIDS: No Hx Splenectomy or Spleen Trauma: No Other PMH: ANXIETY/DEPRESSION/LYME DISEASE. PSHx: lymph node removal L chest wall, chronic fatigue, epistein allred, chronic infection, marijuana. - Social History Smoking Status: Never smoked Constitutional: Initial Vital Signs Temperature (C) 37.0 C 04/06/17 20:08 Heart Rate 105 H 04/06/17 20:08 Respiratory Rate 28 H 04/06/17 20:08 Blood Pressure 112/84 H 04/06/17 20:08 O2 Sat (%) 100 04/06/17 20:08 O2 Delivery Mode Room Air Allergies/Adverse Reactions: azithromycin [From Zithromax] Allergy (Severe, Verified 04/07/17 11:28) Hives Home Medications: Medication Instructions Recorded ALPRAZolam [Xanax 0.5 MG (*)] 0.5 mg PO DAILY PRN 09/09/16 Albuterol [Proventil Inhaler HFA 1 - 2 puffs IH Q4H PRN 09/09/16 (*)] Beclomethasone Qvar 80 [Qvar 80 2 puffs IH DAILY PRN 09/09/16 (*)] Budesonide [Rhinocort Allergy] 2 spray EACHNARE DAILY 09/09/16 Cholecalciferol Vit D3 [Vitamin D3 4,000 units PO DAILY 09/09/16 2000 units tab (OTC)] Citalopram [CeleXA 20 MG] 40 mg PO HS 09/09/16 Cyanocobalamin [Vitamin B12 (*)] 2,000 mcg PO DAILY 09/09/16 Herbals/Supplements -Info Only 1 ea PO DAILY 09/09/16 Lisdexamfetamine Dimesylate 40 mg PO DAILY PRN 09/09/16 [Vyvanse] Montelukast Sodium [Singulair 10 10 mg PO HS 09/09/16 mg (*)] Nortriptyline HCl 40 mg PO HS 09/09/16 traZODone [traZODONE 50MG (*)] 50 mg PO HS 09/09/16 valACYclovir [Valtrex (*)] 500 mg PO BID PRN 09/09/16 Acetaminophen [Tylenol 325mg (*)] 650 mg PO Q6HRS PRN #0 tab 09/11/16 Ondansetron Odt [Zofran Odt 4 mg 4 - 8 mg PO Q4HRS PRN #40 tab 09/11/16 (*)] Sennosides/Docusate Sodium 1 tab PO BID #20 tab 09/11/16 [Senokot-S] oxyCODONE IR [Oxycodone Ir (*)] 5 - 10 mg PO Q4 PRN #20 tab 09/11/16 Amoxicillin/Clavulanate Pot 875 mg PO BID #20 tab 04/07/17 [Augmentin 875 mg tab] Dexamethasone [Decadron] 8 mg PO DAILY #4 tab 04/07/17 Fluconazole [Diflucan (*)] 150 mg PO ONCE #2 tab 04/07/17 Medical Decision Making - Data Points Medications Given: Discontinued Medications Lidocaine (Lidocaine 2% Viscous) 5 ml PO EDNOW ONE Stop: 04/06/17 22:15 Last Admin: 04/06/17 22:23 Dose: 5 ml Departure - Departure Disposition: Home, Routine, Self-Care Clinical Impression: Sore throat Condition: Good Instructions: Pharyngitis (ED) Additional Instructions: Please return to the emergency department if your worse in any way. Referrals: NONE *PRIMARY CARE P,. [Primary Care Provider] - As per Instructions
== END 2017-04-06 23:30 | disposition home or self-care (01) ==
DX: J02.9 Acute pharyngitis, unspecified (principal)

== ENCOUNTER 2017-04-07 11:24 | Emergency (ER) | payer BC ==
[2017-04-07] MEDS ORDERED: DEXAMETHASONE 10 MG/ML VIAL IVP ONE (11:53)
[2017-04-07] MEDS ORDERED: KETOROLAC 30 MG/1 ML SDV IVP ONE (11:53)
[2017-04-07] MEDS ORDERED: NS 1,000 ML IV ONE (11:53)
--- NOTE | 2017-04-07 12:01 | EDPHY ---
H & P Time Seen by Provider: 04/07/17 11:31 HPI/ROS: CHIEF COMPLAINT: Dysphagia, neck pain HISTORY OF PRESENT ILLNESS: 22-year-old female presents to the emergency department with dysphagia and neck pain and stiffness. The patient states that her pain began abruptly last evening. She was seen in the emergency department and had a soft tissue neck x-ray done. The initial interpretation was negative and she was sent home. She states that when she returned home she got a phone call stating that there was an abnormality on her soft tissue neck x-ray and she needed to return to the emergency department for a CT scan for further evaluation. The patient does not feel that her symptoms or any worse however they have not improved. She has a history of chronic Lyme disease and has had tonsillectomy and adenoidectomy as a result of that. No fevers or chills. She denies pharyngitis. She states that she otherwise does not feel sick. She does report that she was skiing all day at a [employer] on a green run. She did not fall or injure herself at all. She denies paresthesias in her upper lower extremities. Denies fever, rash. She did not sleep well last night. REVIEW OF SYSTEMS: Constitutional: No fever, no chills. Eyes: No double or blurry vision. ENT: No sore throat. Respiratory: No cough, no shortness of breath. Cardiac: No chest pain. Gastrointestinal: No abdominal pain, vomiting or diarrhea. Genitourinary: No dysuria. Musculoskeletal: Neck pain and stiffness as above. No back pain. Skin: No rashes. Neurological: No headache. Past Medical/Surgical History: Chronic Lyme disease, tonsillectomy, adenoidectomy Social History: [employer] student from [place] Smoking Status: Never smoked Physical Exam: General Appearance: Alert, no distress. Afebrile. Eyes: Pupils equal and round. Extraocular motions are all intact. ENT: Mouth: Mucous membranes moist. No posterior pharyngeal injection noted. No exudate. No muffled voice or trismus. Respiratory: No wheezing, rhonchi, or rales, lungs are clear to auscultation. Cardiovascular: Regular rate and rhythm. Gastrointestinal: Abdomen is soft and nontender, no masses, no rebound or guarding, bowel sounds normal. Neurological: Alert and oriented x 3, cranial nerves II through XII grossly intact Skin: Warm and dry, no rashes. Musculoskeletal: Nontender to palpate along the cervical, thoracic or lumbar spine. Neck is supple. Patient has pain with range of motion of her neck although no nuchal rigidity. Extremities: Full range of motion and no peripheral edema. Psychiatric: Patient is oriented X 3, there is no agitation. Constitutional: Initial Vital Signs Temperature (C) 36.5 C 04/07/17 11:26 Heart Rate 105 H 04/07/17 11:26 Respiratory Rate 18 04/07/17 11:26 Blood Pressure 116/76 04/07/17 11:26 O2 Sat (%) 97 04/07/17 11:26 O2 Delivery Mode Room Air Allergies/Adverse Reactions: azithromycin [From Zithromax] Allergy (Severe, Verified 04/07/17 11:28) Hives Home Medications: Medication Instructions Recorded ALPRAZolam [Xanax 0.5 MG (*)] 0.5 mg PO DAILY PRN 09/09/16 Albuterol [Proventil Inhaler HFA 1 - 2 puffs IH Q4H PRN 09/09/16 (*)] Beclomethasone Qvar 80 [Qvar 80 2 puffs IH DAILY PRN 09/09/16 (*)] Budesonide [Rhinocort Allergy] 2 spray EACHNARE DAILY 09/09/16 Cholecalciferol Vit D3 [Vitamin D3 4,000 units PO DAILY 09/09/16 2000 units tab (OTC)] Citalopram [CeleXA 20 MG] 40 mg PO HS 09/09/16 Cyanocobalamin [Vitamin B12 (*)] 2,000 mcg PO DAILY 09/09/16 Herbals/Supplements -Info Only 1 ea PO DAILY 09/09/16 Lisdexamfetamine Dimesylate 40 mg PO DAILY PRN 09/09/16 [Vyvanse] Montelukast Sodium [Singulair 10 10 mg PO HS 09/09/16 mg (*)] Nortriptyline HCl 40 mg PO HS 09/09/16 traZODone [traZODONE 50MG (*)] 50 mg PO HS 09/09/16 valACYclovir [Valtrex (*)] 500 mg PO BID PRN 09/09/16 Acetaminophen [Tylenol 325mg (*)] 650 mg PO Q6HRS PRN #0 tab 09/11/16 Ondansetron Odt [Zofran Odt 4 mg 4 - 8 mg PO Q4HRS PRN #40 tab 09/11/16 (*)] Sennosides/Docusate Sodium 1 tab PO BID #20 tab 09/11/16 [Senokot-S] oxyCODONE IR [Oxycodone Ir (*)] 5 - 10 mg PO Q4 PRN #20 tab 09/11/16 Amoxicillin/Clavulanate Pot 875 mg PO BID #20 tab 04/07/17 [Augmentin 875 mg tab] Dexamethasone [Decadron] 8 mg PO DAILY #4 tab 04/07/17 Fluconazole [Diflucan (*)] 150 mg PO ONCE #2 tab 04/07/17 Medical Decision Making - Diagnostics Imaging Results: Imaging Impressions Neck CT 04/07/17 12:54 Impression: 1. Minimal subcutaneous emphysema and pneumomediastinum have not significantly changed since 14 hours prior. Query recent barotrauma. 2. No retropharyngeal fluid collection, lymphadenopathy or mass. 3. Normal epiglottis. Clear airway. Findings discussed with Emergency Department physician assistant county attorney, Bianka Cervantes PA-C on April 07, 2017 at 1355 hours. Chest X-Ray 04/07/17 14:39 Impression: Normal. No pneumothorax, pneumomediastinum, or effusion. ED Course/Re-evaluation: 22-year-old female presents to the emergency department with dysphagia and neck stiffness. She was told to return to the emergency department for CT imaging of the neck given abnormal findings on her soft tissue neck x-ray. Laboratory studies reveal normal CBC and normal chemistries. HCG was negative. I discussed the pros and cons of CT imaging of her neck including radiation exposure the patient verbalized understanding and agreed. CT soft tissue neck revealed Impression: 1. Minimal subcutaneous emphysema and pneumomediastinum have not significantly changed since 14 hours prior. Query recent barotrauma. 2. No retropharyngeal fluid collection, lymphadenopathy or mass. 3. Normal epiglottis. Clear airway. The patient was given 30 mg of Toradol IV and 10 mg of Decadron IV. She was also given 1 L of IV normal saline. The patient was feeling slightly better. She does not feel that her symptoms are any worse since yesterday. I spoke with the on-call ENT, Dr. Júnior Winter, who recommended continued Decadron and to start her on Augmentin. He will see her in follow-up on Sunday. He does not feel that any further intervention is necessary. Chest x-ray was also obtained which revealed no evidence of pneumomediastinum. I discussed the findings with the patient. She feels comfortable being discharged home. She was given strict instructions return to the emergency department immediately if she developed worsening dysphagia, chest pain, headache, or if she felt worse in any way. I do not think this patient has meningitis. Her neck is supple. She is afebrile. Laboratory studies are within normal limits. No rash. Her symptoms are not any worse since yesterday. Differential Diagnosis: Including but not limited to pneumomediastinum, carotid dissection, muscular spasm, hematoma - Data Points Laboratory Results: Laboratory Results 04/07/17 12:00 04/07/17 12:00 04/07/17 04/07/17 04/07/17 12:00 12:00 12:00 WBC 6.41 10^3/uL 10^3/uL (3.80-9.50) RBC 4.68 10^6/uL 10^6/uL (4.18-5.33) Hgb 14.5 g/dL g/dL (12.6-16.3) Hct 40.5 % % (38.0-47.0) MCV 86.5 fL fL (81.5-99.8) MCH 31.0 pg pg (27.9-34.1) MCHC 35.8 g/dL g/dL (32.4-36.7) RDW 13.1 % % (11.5-15.2) Plt Count 271 10^3/uL 10^3/uL (150-400) MPV 9.2 fL fL (8.7-11.7) Neut % (Auto) 60.3 % % (39.3-74.2) Lymph % (Auto) 29.8 % % (15.0-45.0) [place] % (Auto) 7.8 % % (4.5-13.0) Eos % (Auto) 0.8 % % (0.6-7.6) Baso % (Auto) 0.8 % % (0.3-1.7) Nucleat RBC Rel Count 0.0 % % (0.0-0.2) Absolute Neuts (auto) 3.87 10^3/uL 10^3/uL (1.70-6.50) Absolute Lymphs (auto) 1.91 10^3/uL 10^3/uL (1.00-3.00) Absolute Monos (auto) 0.50 10^3/uL 10^3/uL (0.30-0.80) Absolute Eos (auto) 0.05 10^3/uL 10^3/uL (0.03-0.40) Absolute Basos (auto) 0.05 10^3/uL 10^3/uL (0.02-0.10) Absolute Nucleated RBC 0.00 10^3/uL 10^3/uL (0-0.01) Immature Gran % 0.5 % % (0.0-1.1) Immature Gran # 0.03 10^3/uL 10^3/uL (0.00-0.10) Sodium 138 mEq/L mEq/L (134-144) Potassium 4.2 mEq/L mEq/L (3.5-5.2) Chloride 103 mEq/L mEq/L (97-110) Carbon Dioxide 24 mEq/l mEq/l (22-31) Anion Gap 11 mEq/L mEq/L (8-16) BUN 11 mg/dL mg/dL (7-23) Creatinine 0.8 mg/dL mg/dL (0.6-1.0) Estimated GFR > 60 Glucose 81 mg/dL mg/dL (70-100) Calcium 10.1 mg/dL mg/dL (8.5-10.4) Beta HCG, Qual NEGATIVE Medications Given: Discontinued Medications Amoxicillin/Clavulanate Potassium (Augmentin 875mg) 875 mg PO EDNOW ONE PRN Reason: Protocol Stop: 04/07/17 16:05 Last Admin: 04/07/17 16:32 Dose: 875 mg Dexamethasone (Decadron Injection) 10 mg IVP EDNOW ONE Stop: 04/07/17 11:54 Last Admin: 04/07/17 12:08 Dose: 10 mg Sodium Chloride (Ns) 1,000 mls @ 0 mls/hr IV ONCE ONE PRN Reason: Wide Open Stop: 04/07/17 11:54 Last Admin: 04/07/17 12:07 Dose: 1,000 mls Ketorolac Tromethamine (Toradol) 30 mg IVP EDNOW ONE Stop: 04/07/17 11:54 Last Admin: 04/07/17 12:08 Dose: 30 mg Departure - Departure Disposition: Home, Routine, Self-Care Clinical Impression: Neck stiffness Dysphagia Qualifiers: Dysphagia type: unspecified Qualified Code(s): R13.10 - Dysphagia, unspecified Condition: Good Instructions: Dysphagia (ED), Acute Neck Pain (ED) Additional Instructions: Follow up with ENT on Sunday to recheck. Decadron, steroid, for 2 additional days. Your given an IV dose in the emergency department. You may continue ibuprofen 600 mg every 8 hours as needed for pain however you should not take any more ibuprofen until tonight. Drink plenty of fluids. Return to the emergency department if you develop increasing pain, swelling of your neck, or if you feel worse in any way. You should not smoked any marijuana, use any E cigarettes, or do any other inhaled things until your symptoms have completely resolved. Referrals: MODESTA KINGSLEY [Other] - As per Instructions Júnior Winter MD [Medical Doctor] - 1-2 days without fail (ENT on-call) Prescriptions: Amoxicillin/Clavulanate Pot [Augmentin 875 mg tab] 875 mg PO BID #20 tab Dexamethasone [Decadron] 8 mg PO DAILY #4 tab Fluconazole [Diflucan (*)] 150 mg PO ONCE #2 tab
[2017-04-07 12:09] LABS: % IMMATURE GRANULYOCYTES 0.5 % (0.0-1.1); ABSOLUTE IMMATURE GRANULOCYTES 0.03 10^3/uL (0.00-0.10); ADD DIFF? NO; ADD MORPH? NO; ADD SCAN? NO; ATYPICAL LYMPHOCYTE FLAG 10 (0-99); FRAGMENT RBC FLAG 0 (0-99); HEMATOCRIT 40.5 % (38.0-47.0); HEMOGLOBIN 14.5 g/dL (12.6-16.3); LEFT SHIFT FLG 0 (0-99); LIPEMIA HEMOLYSIS FLAG 90 (0-99); MEAN CELL HEMOGLOBIN CONCENTR. 35.8 g/dL (32.4-36.7); MEAN CELL VOLUME 86.5 fL (81.5-99.8); MEAN PLATELET VOLUME 9.2 fL (8.7-11.7); PLATELET CLUMPS FLAG 0 (0-99); PLATELET COUNT 271 10^3/uL (150-400); RED BLOOD CELL COUNT 4.68 10^6/uL (4.18-5.33); RED CELL DISTRIBUTION WIDTH 13.1 % (11.5-15.2)
[2017-04-07 12:25] LABS: ANION GAP 11 mEq/L (8-16); CALCIUM 10.1 mg/dL (8.5-10.4); CARBON DIOXIDE 24 mEq/l (22-31); CHLORIDE 103 mEq/L (97-110); CREATININE 0.8 mg/dL (0.6-1.0); GLOMERULAR FILTRATION RATE > 60; GLUCOSE 81 mg/dL (70-100); POTASSIUM 4.2 mEq/L (3.5-5.2); SODIUM 138 mEq/L (134-144)
[2017-04-07] MEDS ORDERED: IOPAMIDOL (ISOVUE-300) 100 ML BTL ONE (13:20)
[2017-04-07 15:22] VITALS: RESP 16
[2017-04-07] MEDS ORDERED: AMOXICILLIN/CLAVULANATE POT 875/125 MG TAB PO ONE (16:04)
[2017-04-07 16:47] VITALS: BP 121/80; PULSE 78; TEMP 97.9; O2SAT 97
== END 2017-04-07 16:47 | disposition home or self-care (01) ==
DX: R13.10 Dysphagia, unspecified (principal); M43.6 Torticollis
CPT/HCPCS: 96374; J1100; J1885; Q9967

== ENCOUNTER 2018-05-05 15:14 | Emergency (ER) | payer BC ==
[2018-05-05] MEDS ORDERED: PROMETHAZINE HCL 25 MG/ML INJ IVP ONE (15:27)
[2018-05-05] MEDS ORDERED: NS 1,000 ML IV ONE (15:27)
[2018-05-05] MEDS ORDERED: ONDANSETRON 4 MG/2 ML VIAL IVP ONE (15:27)
[2018-05-05] MEDS ORDERED: FAMOTIDINE 20 MG/NACL 50 ML IV ONE (15:27)
--- NOTE | 2018-05-05 15:54 | EDPHY ---
H & P Time Seen by Provider: 05/05/18 15:26 HPI/ROS: HPI Lower abdominal pain. Nausea, vomiting and diarrhea. 23-year-old female by private vehicle. This patient reports that since Sunday she has had nausea with left lower quadrant abdominal pain. She has a history of frequent urinary tract infections. She takes nitrofurantoin chronically for these. Since Sunday she has been taking 100 mg twice daily. Her symptoms have worsened. She describes the pain as involving her left lower quadrant and being sharp and crampy. She has had ovarian cyst with similar pain in the past. She has also had some left-sided flank pain. She reports having several episodes of watery diarrhea. No bloody or melenic stool. She also reports having several episodes of vomiting. Nonbilious nonbloody. Last meal was this morning. She was able to keep solid food down. She is on Depo-Provera control. She has not had a normal menstruation in some time. No prior abdominal surgical history. ROS: Constitutional: No fever, no chills. No weakness. Eyes: No discharge. No changes in vision. ENT: No sore throat. No nasal congestion or rhinorrhea. Respiratory: No cough. No shortness of breath. Cardiac: No chest pain, no palpitations. Gastrointestinal: As above. Genitourinary: No hematuria. No dysuria or increased frequency with urination. As above. Musculoskeletal: As above. No neck pain. No myalgias or arthralgias. Skin: No rashes. Neurological: No headache. No focal weakness or altered sensation. Past medical history: Anxiety, depression, Lyme disease, chronic fatigue, mononucleosis, chronic urinary tract infections. Social history: Smokes marijuana. No alcohol. Here by herself. No tobacco. Physical Exam: General Appearance: Alert, she appears uncomfortable but not in distress. This patient is responding to questions appropriately and in full sentences. This patient appears well-hydrated and well-nourished. Eyes: Pupils equal and round no pallor or injection. No lid edema, erythema or injection. Respiratory: There are no retractions, lungs are clear to auscultation with good air movement bilaterally. Cardiovascular: Regular rate and rhythm. No murmur. Gastrointestinal: Abdomen is soft with left adnexal tenderness on palpation, no masses, bowel sounds normal. No focal tenderness at McBurney's point. No Cotter sign. Neurological: Motor sensory function is grossly intact. Cranial nerves are normal. Gait is normal. Skin: Warm and dry, no rashes. Musculoskeletal: Neck is supple and nontender. She does have mild left-sided lower flank tenderness on palpation. No right-sided tenderness on palpation. Extremities are symmetrical. All joints range without pain or impingement. Psychiatric: No agitation. No depression. Database: EKG: Imaging: Retroperitoneal ultrasound: Negative. Results were discussed with staff radiologist Dr. Oswald Duncan. Pelvic ultrasound: Negative. Results were discussed with staff radiologist Dr. Oswald Duncan. CT abdomen and pelvis without IV contrast: Negative. She has some constipation. Otherwise normal study. Results were discussed with staff radiologist Dr. Oswald Duncan. Procedures: Emergency department course: Triage vital signs reviewed and are normal. IV was placed. She was started on IV normal saline with 1 L to be given over the next hour. She will initially be given 4 mg of IV Zofran, 6.25 mg of IV Phenergan and 20 mg of IV Pepcid for nausea. Pelvic ultrasound will be obtained to evaluate for possible left adnexal cyst as well as ovarian torsion which is less likely. Retroperitoneal ultrasound will be obtained to evaluate for hydronephrosis and possible ureterolithiasis. She consents to workup. 5:15 p.m., patient re-evaluated, she is complaining of left lower quadrant and left lower flank pain. Results of her emergency department workup including ultrasounds discussed with her. She has no contraindications to NSAIDs. She has a normal creatinine. She will be given 30 mg of IV Toradol for pain. CT imaging of the abdomen and pelvis without contrast will be obtained to evaluate for ureterolithiasis. She consents to further workup. 6:15 p.m., patient re-evaluated, resting comfortably at this time. Her pain is much better after IV Toradol. I discussed the results of her CT scan with her. No evidence of ureterolithiasis. She does have white cells in her urine as well as red cells. At this time I will treat her as a pyelonephritis. Her vital signs have been stable. I feel she is safe for outpatient therapy. She was given 750 mg of oral Levaquin in the emergency department. I will prescribe another 4 days of this medication for her to take starting tomorrow evening. I discussed follow-up with her. She feels comfortable going home. Return to emergency department precautions reviewed. All of her questions were answered. She was discharged from the emergency department in good condition. Differential Diagnosis: The differential diagnosis on this patient includes but is not limited to food borne illness, viral gastroenteritis, urinary tract infection, pyelonephritis, ureterolithiasis, ovarian cyst. This represents a partial list of diagnoses considered. These considerations are based on history, physical exam, past history, reassessment and diagnostic testing. Smoking Status: Never smoked Constitutional: Initial Vital Signs Temperature (C) 36.8 C 05/05/18 15:21 Heart Rate 90 05/05/18 15:21 Respiratory Rate 18 05/05/18 15:21 Blood Pressure 115/76 05/05/18 15:21 O2 Sat (%) 97 05/05/18 15:21 O2 Delivery Mode Room Air Allergies/Adverse Reactions: azithromycin [From Zithromax] Allergy (Severe, Verified 05/05/18 15:24) Hives Home Medications: Medication Instructions Recorded ALPRAZolam [Xanax 0.5 MG (*)] 0.5 mg PO DAILY PRN 09/09/16 Albuterol [Proventil Inhaler HFA 1 - 2 puffs IH Q4H PRN 09/09/16 (*)] Beclomethasone Qvar 80 [Qvar 80] 2 puffs IH DAILY PRN 09/09/16 Budesonide [Rhinocort Allergy] 2 spray EACHNARE DAILY 09/09/16 Cholecalciferol Vit D3 [Vitamin D3 4,000 units PO DAILY 09/09/16 2000 units tab (OTC)] Citalopram [CeleXA 20 MG] 40 mg PO HS 09/09/16 Cyanocobalamin [Vitamin B12 (*)] 2,000 mcg PO DAILY 09/09/16 Herbals/Supplements -Info Only 1 ea PO DAILY 09/09/16 Lisdexamfetamine Dimesylate 40 mg PO DAILY PRN 09/09/16 [Vyvanse] traZODone [traZODONE 50MG (*)] 50 mg PO HS 09/09/16 Acetaminophen [Tylenol 325mg (*)] 650 mg PO Q6HRS PRN #0 tab 09/11/16 Amoxicillin/Clavulanate Pot 875 mg PO BID #20 tab 10/14/17 [Augmentin 875 mg tab] Dexamethasone [Decadron] 8 mg PO DAILY #4 tab 04/07/17 Fluconazole [Diflucan (*)] 150 mg PO ONCE #2 tab 04/07/17 Hydrocodone/APAP 5/325 [[place] 1 tab PO Q6H #7 tab 01/23/18 5/325 (*)] Fluconazole [Diflucan (*)] 150 mg PO ONCE #1 tab 05/05/18 levOFLOXACIN [levAQUIN (*)] 750 mg PO DAILY #4 tab 05/05/18 Medical Decision Making - Diagnostics Imaging Results: Imaging Impressions Abdomen/Pelvis Ultrasound 05/05/18 15:49 Impression: Findings are within normal limits. Findings were discussed with Doug Martines MD at 16:52, on 2017. Pelvic/Renal Ultrasound 05/05/18 15:49 Impression: Normal study. Findings were discussed with Doug Martines MD at 16:55, on 2017. Abdomen/Pelvis CT 05/05/18 17:15 Impression: There is no evidence of a stone in the urinary tract, or CT- derived explanation for the patient's symptoms. Attention: This CT examination is specifically designed to evaluate patients who are clinically suspected of having acute obstructive uropathy. This examination does not use radiographic contrast, and as such, provides only a limited evaluation of the abdomen, pelvis, and retroperitoneum. If there is further clinical suspicion for pathological conditions other than obstructive uropathy, a complete CT evaluation of the abdomen and pelvis utilizing intravenous, oral, and rectal contrast should be considered. Findings were discussed with Doug Martines MD at 18:10, on 2017. - Data Points Laboratory Results: Laboratory Results 05/05/18 15:41 05/05/18 15:41 05/05/18 05/05/18 05/05/18 16:45 15:41 15:41 WBC RBC Hgb Hct MCV MCH MCHC RDW Plt Count MPV Neut % (Auto) Lymph % (Auto) [place] % (Auto) Eos % (Auto) Baso % (Auto) Nucleat RBC Rel Count Absolute Neuts (auto) Absolute Lymphs (auto) Absolute Monos (auto) Absolute Eos (auto) Absolute Basos (auto) Absolute Nucleated RBC Immature Gran % Immature Gran # Sodium 141 mEq/L mEq/L (135-145) Potassium 4.1 mEq/L mEq/L (3.3-5.0) Chloride 110 mEq/L mEq/L (97-110) Carbon Dioxide 21 mEq/l L mEq/l (22-31) Anion Gap 10 mEq/L mEq/L (6-14) BUN 10 mg/dL mg/dL (7-23) Creatinine 0.7 mg/dL mg/dL (0.6-1.0) Estimated GFR > 60 Glucose 112 mg/dL H mg/dL (70-100) Calcium 9.5 mg/dL mg/dL (8.5-10.4) Total Bilirubin 0.4 mg/dL mg/dL (0.1-1.4) Conjugated Bilirubin 0.2 mg/dL mg/dL (0.0-0.5) Unconjugated Bilirubin 0.2 mg/dL mg/dL (0.0-1.1) AST 26 IU/L IU/L (14-46) ALT 26 IU/L IU/L (9-52) Alkaline Phosphatase 54 IU/L IU/L (38-126) Total Protein 7.6 g/dL g/dL (6.3-8.2) Albumin 4.6 g/dL g/dL (3.5-5.0) Lipase 204 IU/L IU/L (23-300) Beta HCG, Qual NEGATIVE Urine Color YELLOW Urine Appearance HAZY Urine pH 7.0 (5.0-7.5) Ur Specific [place] 1.009 (1.002-1.030) Urine Protein NEGATIVE (NEGATIVE) Urine Ketones NEGATIVE (NEGATIVE) Urine Blood 3+ H (NEGATIVE) Urine Nitrate NEGATIVE (NEGATIVE) Urine Bilirubin NEGATIVE (NEGATIVE) Urine Urobilinogen NEGATIVE EU EU (0.2-1.0) Ur Leukocyte Esterase NEGATIVE (NEGATIVE) Urine RBC 25-50 /hpf H /hpf (0-3) Urine WBC 5-10 /hpf H /hpf (0-3) Ur Epithelial Cells TRACE /lpf /lpf (NONE-1+) Urine Bacteria 4+ /hpf H /hpf (NONE SEEN) Urine Mucus TRACE /lpf /lpf (NONE-1+) Urine Glucose NEGATIVE (NEGATIVE) 05/05/18 15:41 WBC 7.35 10^3/uL 10^3/uL (3.80-9.50) RBC 4.30 10^6/uL 10^6/uL (4.18-5.33) Hgb 12.9 g/dL g/dL (12.6-16.3) Hct 37.4 % L % (38.0-47.0) MCV 87.0 fL fL (81.5-99.8) MCH 30.0 pg pg (27.9-34.1) MCHC 34.5 g/dL g/dL (32.4-36.7) RDW 13.2 % % (11.5-15.2) Plt Count 278 10^3/uL 10^3/uL (150-400) MPV 9.4 fL fL (8.7-11.7) Neut % (Auto) 56.4 % % (39.3-74.2) Lymph % (Auto) 32.1 % % (15.0-45.0) [place] % (Auto) 8.4 % % (4.5-13.0) Eos % (Auto) 2.2 % % (0.6-7.6) Baso % (Auto) 0.8 % % (0.3-1.7) Nucleat RBC Rel Count 0.0 % % (0.0-0.2) Absolute Neuts (auto) 4.14 10^3/uL 10^3/uL (1.70-6.50) Absolute Lymphs (auto) 2.36 10^3/uL 10^3/uL (1.00-3.00) Absolute Monos (auto) 0.62 10^3/uL 10^3/uL (0.30-0.80) Absolute Eos (auto) 0.16 10^3/uL 10^3/uL (0.03-0.40) Absolute Basos (auto) 0.06 10^3/uL 10^3/uL (0.02-0.10) Absolute Nucleated RBC 0.00 10^3/uL 10^3/uL (0-0.01) Immature Gran % 0.1 % % (0.0-1.1) Immature Gran # 0.01 10^3/uL 10^3/uL (0.00-0.10) Sodium Potassium Chloride Carbon Dioxide Anion Gap BUN Creatinine Estimated GFR Glucose Calcium Total Bilirubin Conjugated Bilirubin Unconjugated Bilirubin AST ALT Alkaline Phosphatase Total Protein Albumin Lipase Beta HCG, Qual Urine Color Urine Appearance Urine pH Ur Specific [place] Urine Protein Urine Ketones Urine Blood Urine Nitrate Urine Bilirubin Urine Urobilinogen Ur Leukocyte Esterase Urine RBC Urine WBC Ur Epithelial Cells Urine Bacteria Urine Mucus Urine Glucose Medications Given: Discontinued Medications Sodium Chloride (Ns) 1,000 mls @ 0 mls/hr IV EDNOW ONE; Wide Open PRN Reason: Protocol Stop: 05/05/18 15:28 Last Admin: 05/05/18 15:48 Dose: 1,000 mls Famotidine/Sodium Chloride (Pepcid 20 Mg (Premix)) 50 mls @ 200 mls/hr IV EDNOW ONE Stop: 05/05/18 15:41 Last Admin: 05/05/18 15:48 Dose: 50 mls Ketorolac Tromethamine (Toradol) 30 mg IVP EDNOW ONE Stop: 05/05/18 17:15 Last Admin: 05/05/18 17:18 Dose: 30 mg Ondansetron HCl (Zofran) 4 mg IVP EDNOW ONE Stop: 05/05/18 15:28 Last Admin: 05/05/18 15:49 Dose: 4 mg Promethazine HCl (Phenergan) 6.25 mg IVP EDNOW ONE Stop: 05/05/18 15:28 Last Admin: 05/05/18 15:48 Dose: 6.25 mg Departure - Departure Disposition: Home, Routine, Self-Care Clinical Impression: Abdominal pain, left lower quadrant, Acute pyelonephritis Condition: Good Instructions: Kidney Infection (ED), Abdominal Pain (ED) Additional Instructions: Read and follow provided instructions. Follow-up with your primary care physician in 1-2 days for re-evaluation as discussed. Take medication as prescribed through entire course of treatment. Return to the emergency department for worsening symptoms, worsening pain, fever , vomiting or other serious concerns. Drink lots of fluids and keep yourself well hydrated. A good fluid to drink is Gatorade mixed with water in a 1-1 dilution. Referrals: BANDAR ZHOU [Other] - As per Instructions Prescriptions: Fluconazole [Diflucan (*)] 150 mg PO ONCE #1 tab levOFLOXACIN [levAQUIN (*)] 750 mg PO DAILY #4 tab
[2018-05-05 16:02] LABS: PLATELET COUNT 278 10^3/uL (150-400)
[2018-05-05] MEDS ORDERED: KETOROLAC 30 MG/1 ML SDV IVP ONE (17:14)
[2018-05-05 18:39] VITALS: BP 121/78
== END 2018-05-05 18:39 | disposition home or self-care (01) ==
DX: R10.32 Left lower quadrant pain (principal); N10 Acute pyelonephritis
CPT/HCPCS: 96374; J1885; J2405; J2550

== ENCOUNTER 2018-10-12 17:00 | Emergency (ER) | payer BC ==
[2018-10-12] MEDS ORDERED: ONDANSETRON 4 MG/2 ML VIAL IVP ONE (17:53)
[2018-10-12] MEDS ORDERED: fentaNYL 100 MCG/2 ML INJ IVP ONE (17:53)
--- NOTE | 2018-10-12 17:58 | EDPHY ---
General Time Seen by Provider: 10/12/18 17:25 Narrative: CLINICAL IMPRESSION: Pelvic pain, bacterial vaginosis, post coital bleeding ASSESSMENT/PLAN: 23-year-old female presents to the emergency department with lower pelvic pain, postcoital bleeding, abdominal pain nausea and vomiting. Patient has had several different sexual partners, intermittently using protection, complains of intermittent vaginal bleeding after intercourse over the last several months , and began bleeding last night after intercourse. No vomiting, normal appetite , no reported fever or chills. Vital signs stable, no evidence of hemodynamic instability. Labs reassuring with no leukocytosis, renal insufficiency, electrolyte imbalance or metabolic disturbance. Pelvic exam shows old clotted blood in the vagina and along the cervix. No obvious polyp or laceration. Pelvic ultrasound reassuring with no abnormal findings identified. Wet prep positive for bacterial vaginosis, no evidence of Trichomonas or yeast infection. STI testing pending however given patient's risk factor along with pelvic pain, she was treated with ceftriaxone and doxycycline. She reports an allergy to azithromycin. Flagyl also initiated in the ED. Patient was feeling better upon discharge. Referral to outpatient OBGYN provided. Warning signs return to ED sooner outlined and discharge. DIFFERENTIAL DX: Differential includes but not limited to PID, UTI, BV, Trichomonas, STIs, postcoital bleeding, cervical polyp, vaginal laceration, abnormal menses, ED PROCEDURES: See lab and/or imaging results below ED COURSE: 6:50 p.m.: Labs reviewed. No evidence of UTI. Urine negative. H&H 14 and 40, no leukocytosis, metabolic panel without abnormality. Positive clue cells on wet prep. STD testing pending. Ultrasound results pending. 7:10 p.m.: Discussed with Dr. Griggs. Pelvic ultrasound unremarkable, no free fluid, thickened endometrial stripe, no ovarian cyst. 7:15 p.m.: Lab and ultrasound results discussed with the patient. She states 1 of her partners was "sketchy" and she therefore would like to be treated for STDs pending STI test results. She reports she got hives from azithromycin in the past. She reports no other drug allergies. She also reports getting yeast infections quite easily with antibiotics and would like a prescription for Diflucan. Will plan to discharge with Flagyl, doxycycline, Diflucan, and pain medications. Ceftriaxone ordered in the ED. CHIEF COMPLAINT: Pelvic pain, abdominal pain, nausea, vomiting, bleeding after intercourse HPI: 23-year-old female presents to the emergency department with complaints of lower pelvic pain and abdominal pain, nausea and vomiting, and bleeding after intercourse last night. Patient reports she had similar symptoms after intercourse in mid August. She has not been on her Depakote shot since April. She has been intermittently using protection and has had 2 separate sexual partners since April. She reports no abnormal foul-smelling vaginal discharge. She did have some dysuria this morning. She also reports a history of anemia but has never required blood transfusions, hospitalizations or iron replacement. She reports intercourse was not forceful or painful. She does not believe she could have been lacerated. She states she has been saturating a tampon or pad every 2 hr. She reports a history of ovarian cysts. Her last Pap smear was over a year ago. No reported fever or chills. She has had limited appetite today due to nausea. PAST MEDICAL HISTORY: Lyme disease, chronic fatigue See triage summary and nurse notes for addition applicable history Pertinent Past Surgical History: None reported Family History: Noncontributory Social History: Otherwise healthy REVIEW OF SYSTEMS: A full 10 point review of systems was negative except for those mentioned in HPI. PHYSICAL EXAM: General Appearance: Alert, oriented, appropriate, cooperative, NAD, well hydrated, non-toxic appearing, VSS, no hypoxia. Respiratory: There are no retractions, lungs are clear to auscultation. Cardiac: Regular rate and rhythm, no murmurs or gallops. Gastrointestinal: Abdomen is soft, mildly tender lower suprapubic region, bowel sounds normal, no masses/hernia, no rigidity, guarding or focal peritoneal findings. Skin: Warm, dry, no rashes, no nodules on palpation. exam. Patient has thick clots in the vagina and covering the cervix. No active fresh red blood seen. She does have cervical motion tenderness and adnexal tenderness on bimanual exam. MEDICAL DECISION MAKING: Patient was seen independently. Secondary supervising physician at time of evaluation was: Dr. Martinez. Diagnosis: Pelvic pain, post coital bleeding, nausea and vomiting, bacterial vaginosis. New, requires workup Summary: See Assessment and Plan for summary of ED visit Clinical lab tests: ordered / reviewed. Independent visualization of images, tracing, or specimens: Yes / No. Discussed patient with another provider: Radiology Patient Progress: Improved, stable for discharge. - Diagnostics Imaging Results: Imaging Impressions Pelvic/Renal Ultrasound 10/12/18 17:52 Impression: 1. Normal uterus. No uterine leiomyoma or thickening of the endometrial lining. 2. No free fluid. 3. Normal ovaries. Findings discussed with emergency department physician under water assistant, Jose Matta PA-C on October 12, 2018 at 7:09 p.m. - History Smoking Status: Never smoked - Objective Vital Signs: Initial Vital Signs Temperature (C) 36.4 C 10/12/18 17:07 Heart Rate 88 10/12/18 17:07 Respiratory Rate 16 10/12/18 17:07 Blood Pressure 107/79 10/12/18 17:07 O2 Sat (%) 99 10/12/18 17:07 O2 Delivery Mode Room Air Allergies/Adverse Reactions: azithromycin [From Zithromax] Allergy (Severe, Verified 05/05/18 15:24) Hives Home Medications: Medication Instructions Recorded ALPRAZolam [Xanax 0.5 MG (*)] 0.5 mg PO DAILY PRN 09/09/16 Albuterol [Proventil Inhaler HFA 1 - 2 puffs IH Q4H PRN 09/09/16 (*)] Beclomethasone Qvar 80 [Qvar 80] 2 puffs IH DAILY PRN 09/09/16 Budesonide [Rhinocort Allergy] 2 spray EACHNARE DAILY 09/09/16 Cholecalciferol Vit D3 [Vitamin D3 4,000 units PO DAILY 09/09/16 2000 units tab (OTC)] Citalopram [CeleXA 20 MG] 40 mg PO HS 09/09/16 Cyanocobalamin [Vitamin B12 (*)] 2,000 mcg PO DAILY 09/09/16 Herbals/Supplements -Info Only 1 ea PO DAILY 09/09/16 Lisdexamfetamine Dimesylate 40 mg PO DAILY PRN 09/09/16 [Vyvanse] traZODone [traZODONE 50MG (*)] 50 mg PO HS 09/09/16 Acetaminophen [Tylenol 325mg (*)] 650 mg PO Q6HRS PRN #0 tab 09/11/16 Doxycycline Hyclate 100 mg PO BID #28 tab 10/12/18 Fluconazole [Diflucan] 200 mg PO DAILY #1 tablet 10/12/18 Hydrocodone/APAP 5/325 [[place] 1 - 2 tab PO Q4H PRN #10 tab 10/12/18 5/325 (*)] Ondansetron Odt [Zofran Odt] 4 mg PO Q4PRN PRN #7 tab 10/12/18 metroNIDAZOLE [Flagyl 500 mg (*)] 500 mg PO BID #14 tab 10/12/18 Laboratory Results: Laboratory Results 10/12/18 18:05 10/12/18 18:05 10/12/18 10/12/18 10/12/18 18:05 18:05 18:00 WBC 9.13 10^3/uL 10^3/uL (3.80-9.50) RBC 4.69 10^6/uL 10^6/uL (4.18-5.33) Hgb 14.1 g/dL g/dL (12.6-16.3) Hct 40.9 % % (38.0-47.0) MCV 87.2 fL fL (81.5-99.8) MCH 30.1 pg pg (27.9-34.1) MCHC 34.5 g/dL g/dL (32.4-36.7) RDW 13.1 % % (11.5-15.2) Plt Count 301 10^3/uL 10^3/uL (150-400) MPV 9.4 fL fL (8.7-11.7) Neut % (Auto) 54.6 % % (39.3-74.2) Lymph % (Auto) 33.8 % % (15.0-45.0) [place] % (Auto) 7.7 % % (4.5-13.0) Eos % (Auto) 2.7 % % (0.6-7.6) Baso % (Auto) 0.8 % % (0.3-1.7) Nucleat RBC Rel Count 0.0 % % (0.0-0.2) Absolute Neuts (auto) 4.98 10^3/uL 10^3/uL (1.70-6.50) Absolute Lymphs (auto) 3.09 10^3/uL H 10^3/uL (1.00-3.00) Absolute Monos (auto) 0.70 10^3/uL 10^3/uL (0.30-0.80) Absolute Eos (auto) 0.25 10^3/uL 10^3/uL (0.03-0.40) Absolute Basos (auto) 0.07 10^3/uL 10^3/uL (0.02-0.10) Absolute Nucleated RBC 0.00 10^3/uL 10^3/uL (0-0.01) Immature Gran % 0.4 % % (0.0-1.1) Immature Gran # 0.04 10^3/uL 10^3/uL (0.00-0.10) Sodium 138 mEq/L mEq/L (135-145) Potassium 4.2 mEq/L mEq/L (3.5-5.2) Chloride 104 mEq/L mEq/L (97-110) Carbon Dioxide 26 mEq/l mEq/l (22-31) Anion Gap 8 mEq/L mEq/L (6-14) BUN 10 mg/dL mg/dL (7-23) Creatinine 0.6 mg/dL mg/dL (0.6-1.0) Estimated GFR > 60 Glucose 91 mg/dL mg/dL (70-100) Calcium 9.5 mg/dL mg/dL (8.5-10.4) Urine Color Urine Appearance Urine pH Ur Specific [place] Urine Protein Urine Ketones Urine Blood Urine Nitrate Urine Bilirubin Urine Urobilinogen Ur Leukocyte Esterase Urine RBC Urine WBC Ur Epithelial Cells Urine Mucus Urine Glucose Urine Test Trichomonas (Wet Prep) NO TRICHOMONAS Nehal species DNA [place] DNA Probe Trichomonas DNA Probe 10/12/18 10/12/18 10/12/18 18:00 18:00 17:27 WBC RBC Hgb Hct MCV MCH MCHC RDW Plt Count MPV Neut % (Auto) Lymph % (Auto) [place] % (Auto) Eos % (Auto) Baso % (Auto) Nucleat RBC Rel Count Absolute Neuts (auto) Absolute Lymphs (auto) Absolute Monos (auto) Absolute Eos (auto) Absolute Basos (auto) Absolute Nucleated RBC Immature Gran % Immature Gran # Sodium Potassium Chloride Carbon Dioxide Anion Gap BUN Creatinine Estimated GFR Glucose Calcium Urine Color YELLOW Urine Appearance CLEAR Urine pH 8.0 H (5.0-7.5) Ur Specific [place] 1.020 (1.002-1.030) Urine Protein NEGATIVE (NEGATIVE) Urine Ketones NEGATIVE (NEGATIVE) Urine Blood 2+ H (NEGATIVE) Urine Nitrate NEGATIVE (NEGATIVE) Urine Bilirubin NEGATIVE (NEGATIVE) Urine Urobilinogen NEGATIVE EU EU (0.2-1.0) Ur Leukocyte Esterase NEGATIVE (NEGATIVE) Urine RBC 1-3 /hpf /hpf (0-3) Urine WBC 1-3 /hpf /hpf (0-3) Ur Epithelial Cells TRACE /lpf /lpf (NONE-1+) Urine Mucus 1+ /lpf /lpf (NONE-1+) Urine Glucose NEGATIVE (NEGATIVE) Urine Test NEGATIVE Trichomonas (Wet Prep) Nehal species DNA Pending [place] DNA Probe Pending Trichomonas DNA Probe Pending Medications Given: Discontinued Medications Fentanyl (Sublimaze) 50 mcg IVP EDNOW ONE Stop: 10/12/18 17:54 Last Admin: 10/12/18 18:19 Dose: 50 mcg Sodium Chloride (Ns) 1,000 mls @ 0 mls/hr IV ONCE ONE PRN Reason: Wide Open Stop: 10/12/18 18:13 Last Admin: 10/12/18 18:19 Dose: 1,000 mls Ceftriaxone Sodium/Dextrose (Rocephin 1 Gm (Premix)) 50 mls @ 100 mls/hr IV EDNOW ONE PRN Reason: Protocol Stop: 10/12/18 19:49 Last Admin: 10/12/18 19:27 Dose: 50 mls Ketorolac Tromethamine (Toradol) 15 mg IVP EDNOW ONE Stop: 10/12/18 19:21 Last Admin: 10/12/18 19:26 Dose: 15 mg Metronidazole (Flagyl) 500 mg PO EDNOW ONE PRN Reason: Protocol Stop: 10/12/18 19:12 Last Admin: 10/12/18 19:25 Dose: 500 mg Ondansetron HCl (Zofran) 4 mg IVP EDNOW ONE Stop: 10/12/18 17:54 Last Admin: 10/12/18 18:19 Dose: 4 mg Departure - Departure Disposition: Home, Routine, Self-Care Clinical Impression: Bacterial vaginosis, Risk for sexually transmitted disease, Pelvic pain in female Condition: Good Instructions: Bacterial Vaginosis (ED), Safe Sex (ED), Pelvic Pain in Women (ED ) Additional Instructions: DISCHARGE INSTRUCTIONS FROM YOUR DOCTOR Thank you for visiting our emergency department today. You were treated by a physician under water assistant today and your case was reviewed with our ED Attending physician. Please keep in mind that discharge from the emergency department does not mean that there is nothing wrong - it simply means that we have not identified an emergency condition that requires further evaluation or treatment in the hospital. You should always plan to follow up with primary care for re- evaluation of your condition in the next 2-3 days. If you have been referred to a specialist, please call as soon as possible (today or tomorrow) to schedule your follow up appointment at the appropriate time. DIAGNOSTIC EVALUATION IN THE EMERGENCY DEPARTMENT TONIGHT INCLUDED URINE STUDIES, WET PREP, STD TESTING, LAB WORK AND PELVIC ULTRASOUND. YOU ARE NOT . YOU HAVE NO SIGN OF URINARY TRACT INFECTION. PELVIC ULTRASOUND WAS READ BY THE RADIOLOGIST SHOWING NO ACUTE ABNORMALITY, OVARIAN CYST, UTERINE MASS , OR FREE FLUID. WET PREP WAS POSITIVE FOR BACTERIAL VAGINOSIS. STD TESTING IS PENDING HOWEVER GIVEN RISKS AND SEVERAL NEW SEXUAL PARTNERS, TREATMENT WAS INITIATED TONIGHT. PLEASE TAKE ALL ANTIBIOTICS DIRECTED AND IF THE YOUR STD TESTING COMES BACK POSITIVE, PLEASE NOTIFY ALL PARTNERS SO THEY MAY BE TREATED WELL. PLEASE TAKE DIFLUCAN IF NEEDED FOR YEAST INFECTION AFTER ANTIBIOTIC USE. A PRESCRIPTION FOR PAIN MEDICATION WAS GIVEN TO USE FOR BREAKTHROUGH PAIN. DO NOT DRIVE OR DRINK ALCOHOL WHILE TAKING NARCOTIC PAIN MEDICATION. PLEASE BE AWARE, NARCOTICS CAN CAUSE CONSTIPATION, LETHARGY, AND INCREASE YOUR RISK OF FALLING. DO NOT TAKE TYLENOL AT THE SAME TIME VICODIN OR PERCOCET. A REFERRAL WAS GIVEN TO LOCAL OBGYN FOR FORMAL PELVIC EXAM AND PAP SMEAR. PLEASE CALL SUNDAY FOR AN APPOINTMENT. RETURN TO THE EMERGENCY DEPARTMENT FOR SEVERE PELVIC PAIN, FEVERS GREATER THAN 100.4, PERSISTENT NAUSEA OR VOMITING, WORSENING ABDOMINAL PAIN, HEAVY VAGINAL BLEEDING, OR ANY OTHER CONCERNS. People present with illnesses and injuries in different ways, and it is always possible that we have missed something. You may always return for re-evaluation if symptoms worsen or if they are not improving or if you develop new/different symptoms. Again, thank you for choosing our emergency department. We hope that you feel better. Referrals: NONE *PRIMARY CARE P,. [Primary Care Provider] - As per Instructions Yani Becker MD [Medical Doctor] - 2-3 days, call for appt. Prescriptions: Doxycycline Hyclate 100 mg PO BID #28 tab Fluconazole [Diflucan] 200 mg PO DAILY #1 tablet Hydrocodone/APAP 5/325 [[place] 5/325 (*)] 1 - 2 tab PO Q4H PRN #10 tab PRN Reason: Pain, Moderate metroNIDAZOLE [Flagyl 500 mg (*)] 500 mg PO BID #14 tab Ondansetron Odt [Zofran Odt] 4 mg PO Q4PRN PRN #7 tab PRN Reason: Nausea/Vomiting, Can'T Take Po
[2018-10-12] MEDS ORDERED: NS 1,000 ML IV ONE (18:12)
[2018-10-12 18:20] LABS: PLATELET COUNT 301 10^3/uL (150-400)
[2018-10-12] MEDS ORDERED: metroNIDAZOLE 500 MG TAB PO ONE (19:11)
[2018-10-12] MEDS ORDERED: KETOROLAC 15 MG/1 ML SDV IVP ONE (19:20)
[2018-10-12 20:10] VITALS: BP 101/72
== END 2018-10-12 20:08 | disposition home or self-care (01) ==
DX: N76.0 Acute vaginitis (principal); R10.2 Pelvic and perineal pain
CPT/HCPCS: 96374; J0696; J1885; J2405; J3010

== ENCOUNTER 2018-10-17 15:15 | Emergency (ER) | payer BC ==
[2018-10-17] MEDS ORDERED: ONDANSETRON 4 MG/2 ML VIAL IVP ONE (15:42)
[2018-10-17] MEDS ORDERED: fentaNYL 100 MCG/2 ML INJ IVP ONE ×2 (15:42→17:54)
[2018-10-17] MEDS ORDERED: NS 1,000 ML IV ONE ×2 (15:42→19:16)
[2018-10-17] MEDS ORDERED: IOPAMIDOL (ISOVUE-300) 100 ML BTL ONE (16:39)
[2018-10-17] MEDS ORDERED: KETOROLAC 30 MG/1 ML SDV IM ONE (17:19)
[2018-10-17] MEDS ORDERED: traMADol 50 MG TAB PO ONE (18:00)
[2018-10-17] MEDS ORDERED: PROMETHAZINE HCL 25 MG/ML INJ IVP ONE (18:33)
== END 2018-10-17 20:18 | disposition home or self-care (01) ==
DX: N73.9 Female pelvic inflammatory disease, unspecified (principal); K59.00 Constipation, unspecified; R10.30 Lower abdominal pain, unspecified; E86.9 Volume depletion, unspecified; F41.9 Anxiety disorder, unspecified; F32.9 Major depressive disorder, single episode, unspecified; F90.9 Attention-deficit hyperactivity disorder, unspecified type; A69.20 Lyme disease, unspecified; Z87.440 Personal history of urinary (tract) infections

== ENCOUNTER 2018-11-26 09:07 | Emergency (ER) | payer BC | END 2018-11-26 12:15 | disposition home or self-care (01) ==

== ENCOUNTER 2018-12-19 16:22 | Emergency (ER) | payer BC | END 2018-12-19 20:08 | disposition home or self-care (01) ==